=== PATIENT | female | born 1950 | race Caucasian/White ===

== ENCOUNTER 2024-03-30 21:30 | Emergency (ER) | payer OTHER ==
[2024-03-30] MEDS ORDERED: NA CHLORIDE 0.9% 1,000 ML ONE (22:12)
[2024-03-30 22:30] LABS: ALT/SGPT 19 U/L (13-56); AST/SGOT 17 U/L (15-37); Albumin 3.6 g/dL (3.4-5.0); Alkaline Phosphatase 68 U/L (45-117); Anion Gap 9.6 mEq/L (5.0-15.0); BUN Blood Urea Nitrogen 17 mg/dL (7-18); Bicarbonate 27 mEq/L (21-32); Bilirubin Total 0.2 mg/dL (0.2-1.0); Globulin 3.6 g/dL (2.3-3.5); Glomerular Filtration Rate 64 ml/min (=/>90); Glucose Level 129 mg/dL (74-106); Magnesium 2.1 mg/dL (1.6-2.4); NT PRO-BNP 40 pg/mL (<125); Potassium 3.6 mEq/L (3.5-5.1); Protein, Total 7.2 g/dL (6.4-8.2); Sodium Level 135 mEq/L (136-145); Troponin High Sensitivity 4.2 pg/mL (<58.9)
[2024-03-30 22:31] LABS: Bilirubin Direct < 0.2 mg/dL (0-0.2)
[2024-03-30 22:36] LABS: C-Reactive Protein 4.41 mg/L (<3.00)
[2024-03-30 22:38] LABS: Thyroid Stimulating Hormone 9.29 uIU/mL (0.358-3.740)
[2024-03-30 22:48] LABS: PT Prothrombin Time 10.9 SECONDS (9.4-12.5); PTT, Activated Partial Thromb 32.4 SECONDS (24.3-36.9); Protime INR 0.97
[2024-03-30 22:55] LABS: Absolute Eosinophils 0.2 K/uL (0-0.5); Absolute Lymphocytes (CBC) 2.2 K/uL (0.7-4.9); Absolute Monocytes 0.7 K/uL (0.1-1.3); Absolute Neutrophil 2.8 K/uL (1.8-8.0); Basophils % 0.5 % (0-1.3); Eosinophils % 3.5 % (0-4.4); Hematocrit 34.9 % (36.0-45.0); Hemoglobin 11.9 g/dL (12.0-15.0); Lymphocytes % 36.7 % (15.3-44.8); MCHC 34.1 g/dL (32.0-36.0); MCV 90.9 fL (80-100); MPV 7.7 fL (7.6-11.3); Monocytes % 12.2 % (3.3-12.3); Neutrophils % 47.1 % (41.7-73.7); Nucleated Red Blood Cells % 0.1 % (0-0); Platelets 303 thou/uL (152-406); RBC Red Blood Cell Count 3.83 M/uL (3.86-4.86); Red Cell Distribution Width 13.6 % (12.1-15.2)
--- NOTE | 2024-03-31 01:34 | ER ---
Nurse's Notes [facility] Name: Faina Gutierrez Age: 73 yrs Sex: Female : 1950 Arrival Date: 03/30/2024 Time: 21:30 Bed 4 Private MD: Diagnosis: Chest pain, unspecified;Atypical chest pain Presentation: 03/30 21:55 Chief complaint: Patient states: This afternoon started having really bad chest pain vc1 that wraps around my back to my shoulder and neck. Coronavirus screen: Vaccine status: Patient reports receiving the 2nd dose of the covid vaccine. plus one booster Client denies travel out of the [place] in the last 14 days. At this time, the client does not indicate any symptoms associated with coronavirus-19. Ebola Screen: Patient negative for fever greater than or equal to 101.5 degrees Fahrenheit, and additional compatible Ebola Virus Disease symptoms Patient denies exposure to infectious person. Patient denies travel to an Ebola-affected area in the 21 days before illness onset. No symptoms or risks identified at this time. Initial Sepsis Screen: Does the patient meet any 2 criteria? No. Patient's initial sepsis screen is negative. Does the patient have a suspected source of infection? No. Patient's initial sepsis screen is negative. Risk Assessment: Do you want to hurt yourself or someone else? Patient reports no desire to harm self or others. Onset of symptoms was March 30, 2024. 21:55 Method Of Arrival: Wheelchair vc1 21:55 Acuity: BRANDON 3 vc1 Triage Assessment: 22:03 General: Appears in no apparent distress. uncomfortable, slender, well groomed, well vc1 developed, well nourished, Behavior is calm, cooperative, appropriate for age. Pain: Complains of pain in right upper quadrant and left upper quadrant Pain radiates to left subscapular area, right subscapular area and right sternocleidomastoid Pain currently is 5 out of 10 on a pain scale. at worst was 8 out of 10 on a pain scale. Quality of pain is described as sharp, Pain began suddenly, Also complains of nausea. EENT: No deficits noted. No signs and/or symptoms were reported regarding the EENT system. Neuro: Level of Consciousness is awake, alert, obeys commands, Oriented to person, place, time, situation, Appropriate for age. Cardiovascular: Heart tones S1 S2 present Capillary refill < 3 seconds Patient's skin is warm and dry. Respiratory: Airway is patent Respiratory effort is even, unlabored, Respiratory pattern is regular, symmetrical. GI: Reports epigastric pain, nausea. : No deficits noted. No signs and/or symptoms were reported regarding the genitourinary system. Derm: Skin is intact, is healthy with good turgor, Skin is dry, Skin is normal, Skin temperature is warm. Musculoskeletal: Circulation, motion, and sensation intact. Range of motion: intact in all extremities. Historical: - Allergies: 22:00 "any meds that end with cet ex. percocet"; vc1 - PMHx: 22:00 None; vc1 - PSHx: 22:00 Hysterectomy(left uterus); vc1 - Immunization history:: Client reports receiving the 2nd dose of the Covid vaccine, Pneumococcal vaccine is up to date, Flu vaccine is up to date. - Infectious Disease History:: Denies. - Social history:: Smoking status: Patient denies any tobacco usage or history of. - Family history:: not pertinent. Screenin:02 [facility] ED Fall Risk Assessment (Adult) History of falling in the last 3 months, vc1 including since admission No falls in past 3 months (0 pts) Confusion or Disorientation No (0 pts) Intoxicated or Sedated No (0 pts) Impaired Gait No (0 pts) Mobility Assist Device Used No (0 pt) Altered Elimination No (0 pt) Score/Fall Risk Level 0 - 2 = Low Risk Oriented to surroundings, Maintained a safe environment, Educated pt \\T\\ family on fall prevention, incl call for assistance when getting out of bed. Abuse screen: Denies threats or abuse. Nutritional screening: No deficits noted. Tuberculosis screening: No symptoms or risk factors identified. Assessment: 22:10 General: Appears uncomfortable, Behavior is calm, cooperative, appropriate for age. dd2 Pain: Complains of pain in chest and back Pain radiates to back Pain currently is 6 out of 10 on a pain scale. at worst was 9 out of 10 on a pain scale. Pain: Quality of pain is described as burning, Pain began 4 hours ago. Neuro: Rivera Agitation-Sedation Scale (RASS): 0 - Alert and Calm Level of Consciousness is awake, alert, obeys commands, Oriented to person, place, time, situation, Appropriate for age. Cardiovascular: Reports chest pain, Heart tones S1 S2 present Patient's skin is warm and dry. Rhythm is sinus rhythm. Cardiovascular: Chest pain is described as Pain is 6 out of 10 on a pain scale. quality is burning, is located in epigastric area substernal area. Respiratory: Airway is patent Respiratory effort is even, unlabored, Respiratory pattern is regular, symmetrical, Breath sounds are clear bilaterally. GI: Abdomen is non-distended, Bowel sounds present X 4 quads. Abd is soft and non tender X 4 quads. Reports epigastric pain. : No deficits noted. No signs and/or symptoms were reported regarding the genitourinary system. EENT: No deficits noted. No signs and/or symptoms were reported regarding the EENT system. Derm: No deficits noted. No signs and/or symptoms reported regarding the dermatologic system. Musculoskeletal: No deficits noted. No signs and/or symptoms reported regarding the musculoskeletal system. Circulation, motion, and sensation intact. Range of motion: intact in all extremities. 03/31 00:23 Reassessment: Patient and/or family updated on plan of care and expected duration. Pain dd2 level reassessed. Patient is alert, oriented x 3, equal unlabored respirations, skin warm/dry/pink. Patient states feeling better. Patient states symptoms have improved. Vital Signs: 03/30 21:55 BP 179 / 79; Pulse 85; Resp 14; Temp 98.4; Pulse Ox 100% ; Weight 57.15 kg; Height 5 vc1 ft. 4 in. ; Pain 5/10; 22:05 BP 179 / 79; Pulse 69; Resp 16; Pulse Ox 100% on R/A; dd2 23:00 BP 143 / 93; Pulse 78; Resp 16; Pulse Ox 100% on R/A; dd2 03/31 01:09 BP 163 / 87; Pulse 73; Resp 16; Pulse Ox 100% on R/A; dd2 02:08 BP 170 / 84; Pulse 74; Resp 16; Pulse Ox 99% on R/A; dd2 03:33 BP 149 / 78; Pulse 76; Resp 16; Temp 98.3; Pulse Ox 99% on R/A; dd2 03/30 21:55 Body Mass Index 21.63 (57.15 kg, 162.56 cm) vc1 03/30 21:55 Pain Scale: Adult vc1 Jerod Coma Score: 03/30 21:50 Eye Response: spontaneous(4). Motor Response: obeys commands(6). Verbal Response: sp4 oriented(5). Total: 15. 22:05 Eye Response: spontaneous(4). Motor Response: obeys commands(6). Verbal Response: dd2 oriented(5). Total: 15. ED Course: 21:32 Patient arrived in ED. gm2 21:33 Lg Arias MD is Attending Physician. sp4 21:47 JULITO BAL, CASTILLO is Primary Nurse. dd2 22:00 Triage completed. vc1 22:02 Arm band placed on right wrist. vc1 22:04 Basic Metabolic Panel Sent. dd2 22:04 CBC with Diff Sent. dd2 22:04 LFT's Sent. dd2 22:04 Magnesium Sent. dd2 22:04 NT PRO-BNP Sent. dd2 22:04 PT-INR Sent. dd2 22:04 Troponin HS Sent. dd2 22:05 Patient has correct armband on for positive identification. Bed in low position. Call dd2 light in reach. Side rails up X2. Client placed on continuous cardiac and pulse oximetry monitoring. NIBP monitoring applied. environmental monitoring specialist on. Door closed. Noise minimized. Warm blanket given. Pillow given. Verbal reassurance given. 22:05 CRP Sent. dd2 22:05 T4 Free Sent. dd2 22:05 TSH Sent. dd2 22:05 No provider procedures requiring assistance completed. Initial lab(s) drawn, by dc, dd2 sent to lab. Inserted saline lock: 20 gauge in left antecubital area, using aseptic technique. Blood collected. Flushed with 10 mL NS. Patient maintains SpO2 saturation greater than 95% on room air. 22:18 EKG done, by ED staff, reviewed by Lg Arias MD. dd2 22:37 US Abdomen Limited In Process Unspecified. EDMS 22:54 CT Aorta for Dissection In Process Unspecified. EDMS /03 01:32 Prince Ware MD is Hospitalizing Provider. sp4 02:08 Troponin High Sensitivity Sent. dd2 03:21 Darien Pastrana MD is Referral Physician. sp4 03:33 Provided Education on: D/C EDUCATION. dd2 03:33 IV discontinued, intact, bleeding controlled, No redness/swelling at site. Pressure dd2 dressing applied. Administered Medications: 03/30 22:18 Drug: NS 0.9% IV 1000 ml IV at 125 ml/hr Per protocol; to be given as a bolus over 60 dd2 minutes Route: IV; Rate: 125 ml/hr; Site: left antecubital; 22:33 Follow up: Response: No adverse reaction dd2 23:18 Follow up: IV Status: Completed infusion; IV Intake: 1000ml dd2 03/31 02:08 Drug: Famotidine IVP 20 mg IVP once; dilute with 10 mL 0.9% NaCl; give over 2 minutes dd2 Route: IVP; Site: left antecubital; 02:23 Follow up: Response: No adverse reaction dd2 02:08 Drug: Aspirin PO Chewable Tablet 324 mg PO once; 81 mg tablets x 4 Route: PO; dd2 02:38 Follow up: Response: No adverse reaction dd2 Medication: 03/30 22:03 VIS not applicable for this client. vc1 Intake: 23:18 IV: 1000ml; Total: 1000ml. dd2 Outcome: 03/31 01:33 Decision to Hospitalize by Provider. sp4 03:22 Discharge ordered by . sp4 03:33 Discharged to home ambulatory, dd2 03:33 Condition: stable 03:33 Discharge instructions given to patient, Instructed on discharge instructions, follow up and referral plans. medication usage, Demonstrated understanding of instructions, follow-up care, medications, Prescriptions given X 1, 03:35 Patient left the ED. dd2 Signatures: Dispatcher [employer] EDMS Heather Busby RN RN vc1 Lg Arais MD MD sp4 Kerrie Bills gm2 JULITO BAL RN RN dd2
--- NOTE | 2024-03-31 01:34 | EDPHYS ---
Physician Documentation [facility] Name: Hyacinth Suresh Age: 73 yrs Sex: Female : 1950 Arrival Date: 03/30/2024 Time: 21:30 Bed 4 Private MD: ED Physician Lg Arias HPI: 03/30 21:33 This 73 yrs old Female presents to ER via Unassigned with complaints of Chest sp4 pain . 03/31 01:38 73-year-old female with history of periodic acid reflux presents with acute bilateral sp4 chest pain associated with radiation into the upper chest neck and lower jaw. This has started in the daytime and afternoon.. Historical: - Allergies: 03/30 22:00 "any meds that end with cet ex. percocet"; vc1 - PMHx: 22:00 None; vc1 - PSHx: 22:00 Hysterectomy(left uterus); vc1 - Immunization history:: Client reports receiving the 2nd dose of the Covid vaccine, Pneumococcal vaccine is up to date, Flu vaccine is up to date. - Infectious Disease History:: Denies. - Social history:: Smoking status: Patient denies any tobacco usage or history of. - Family history:: not pertinent. ROS: 03/31 01:38 Constitutional: Negative for fever, chills, and weight loss, sp4 Constitutional: Negative for fever, chills, and weight loss, positive for chest pain All other systems are negative, Exam: 03/30 21:50 Constitutional: This is a well developed, well nourished patient who is awake, alert, sp4 and in no acute distress. Head/Face: Normocephalic, atraumatic. Eyes: Pupils equal round and reactive to light, extra-ocular motions intact. Lids and lashes normal. Conjunctiva and sclera are not injected. Cornea within normal limits. Periorbital areas with no swelling, redness, or edema. ENT: Nares patent. No nasal discharge, no septal abnormalities noted. Tympanic membranes are normal and external auditory canals are clear. Oropharynx with no redness, swelling, or masses, exudates, or evidence of obstruction, uvula midline. Mucous membranes moist. Neck: Trachea midline, no thyromegaly or masses palpated, and no cervical lymphadenopathy. Supple, full range of motion without nuchal rigidity, or vertebral point tenderness. Chest/axilla: Normal chest wall appearance and motion. Nontender with no deformity. No lesions are appreciated. Cardiovascular: Regular rate and rhythm with a normal S1 and S2. No gallops, murmurs, or rubs. Normal PMI, no JVD. No pulse deficits. Respiratory: Lungs have equal breath sounds bilaterally, clear to auscultation and percussion. No rales, rhonchi or wheezes noted. No increased work of breathing, no retractions or nasal flaring. Abdomen/GI: Soft, with normal bowel sounds. No distension or tympany. No guarding or rebound. No evidence of tenderness throughout. Back: No spinal tenderness. No costovertebral tenderness. Skin: Warm, dry with normal turgor. Normal color with no rashes, no lesions, and no evidence of cellulitis. MS/ Extremity: Pulses equal, no cyanosis. Neurovascular intact. Full, normal range of motion. Neuro: Awake and alert, GCS 15, oriented to person, place, time, and situation. Cranial nerves II-XII grossly intact. Motor strength 5/5 in all extremities. Sensory grossly intact. Psych: Awake, alert, with orientation to person, place and time. Behavior, mood, and affect are within normal limits ECG was reviewed by the Attending Physician. 03/31 01:37 EKG at 2142 normal sinus rhythm rate 79. sp4 Vital Signs: 03/30 21:55 BP 179 / 79; Pulse 85; Resp 14; Temp 98.4; Pulse Ox 100% ; Weight 57.15 kg; Height 5 vc1 ft. 4 in. ; Pain 5/10; 22:05 BP 179 / 79; Pulse 69; Resp 16; Pulse Ox 100% on R/A; dd2 23:00 BP 143 / 93; Pulse 78; Resp 16; Pulse Ox 100% on R/A; dd2 03/31 01:09 BP 163 / 87; Pulse 73; Resp 16; Pulse Ox 100% on R/A; dd2 02:08 BP 170 / 84; Pulse 74; Resp 16; Pulse Ox 99% on R/A; dd2 03:33 BP 149 / 78; Pulse 76; Resp 16; Temp 98.3; Pulse Ox 99% on R/A; dd2 03/30 21:55 Body Mass Index 21.63 (57.15 kg, 162.56 cm) vc1 03/30 21:55 Pain Scale: Adult vc1 [place] Coma Score: 03/30 21:50 Eye Response: spontaneous(4). Motor Response: obeys commands(6). Verbal Response: sp4 oriented(5). Total: 15. 22:05 Eye Response: spontaneous(4). Motor Response: obeys commands(6). Verbal Response: dd2 oriented(5). Total: 15. MDM: 21:37 Medical Screening Exam initiated sp4 23:32 ED course: EXAM DESCRIPTION: Abdomen Exam Limited RadLex: US ABDOMEN LIMITED CLINICAL sp4 HISTORY: ABD PAIN. COMPARISON: CT abdomen/pelvis from today. TECHNIQUE: Ultrasound of the right upper abdomen with Doppler flow imaging was obtained. FINDINGS: Gallbladder: No cholelithiasis or gallbladder wall thickening. Negative sonographic Smith's sign. Bile ducts: No dilatation of the intrahepatic bile ducts. The common bile duct measures 0.3 cm in diameter at the gladis hepatis. IMPRESSION: No cholelithiasis or acute findings. Electronically signed by: Carolann Castellanos MD 03/30/2024 11:24 PM. 03/31 01:14 ED course: EXAM DESCRIPTION: CT CHESTABDOMEN PELVIS ANGIOGRAPHYWITH IV CONTRAST sp4 03/31/2024 12:39 AM SENIOR SALES ASSISTANT CLINICAL HISTORY: 73 years, Female, Chest pain. COMPARISON: US Abdomen 03/30/2024. PROCEDURE: Multiple transaxial tomograms of the thoracic and abdominal aorta were performed utilizing 2 mm slice thickness at 2 mm interval reconstruction, from the lung apices to the ischial tuberosities, before and after the administration of large bolus of IV contrast for complete opacification of the thoracic, abdominal aorta and iliac arteries. 2-D and 3-D multiplanar reformats, volume rendering technique and maximum intensity projection images were generated and reviewed. An individualized dose optimization technique, Automated Exposure Control, was utilized for the performed procedure. Findings: Thoracic aorta/great vessels: The thoracic aorta demonstrate to be within normal limits. No evidence for significant aneurysm and/or dilatation. There is normal branching pattern of the great vessels with no evidence for significant proximal stenosis and/or occlusion Aorta/iliac arteries: There is minimal peripheral plaque in the abdominal aorta without aneurysmal dilatation or evidence of dissection. Bilateral common iliac arteries are patent minimal peripheral plaque. No evidence for significant stenosis. No dissection or aneurysm appreciated.. The origin-proximal aspect of the celiac trunk, superior mesenteric artery demonstrate minimal peripheral atheromatous plaque with no definitive evidence for significant stenosis. There are single bilateral renal arteries with the presence of minimal peripheral atheromatous plaque at the origin/proximal aspect with no evidence for significant stenosis. Chest: Lower neck: Visualized thyroid gland and soft tissues are normal. No adenopathy. Lungs: The lung parenchyma demonstrate to be clear. No evidence of airspace or interstitial process. No significant pulmonary nodules and/or masses identified. No focal areas of consolidation. Airways: The trachea mainstem bronchus demonstrate to be unremarkable. Pleural: There are no pleural effusion. No evidence for pneumothorax. Hemidiaphragms are normally positioned. Mediastinum and lymph nodes: No significant mediastinal and/or hilar lymphadenopathy. The axillary regions demonstrate to be clear. There is minimal mucosal thickening of the distal esophagus on CT series #401 image 45/209-78/209 perhaps corresponding to esophagitis and/or gastroesophageal reflux disease. Heart: Normal size. No pericardial thickening or effusion. Coronary: No significant coronary artery calcifications. Pulmonary arteries: The central pulmonary arteries demonstrate to be within normal limits. No evidence for significant central filling defect to suggest pulmonary embolus. Osseous structures and chest wall: The thoracic spine demonstrate to be within normal limits. No evidence for compression deformities and/or significant skeletal lesions. Abdomen and pelvis: Liver: The liver demonstrated presence of decreased attenuation corresponding to mild fatty infiltration. Gallbladder: The gallbladder is partially contracted most likely related to lack of fasting. No significant filling defects and/or abnormality is identified. Adrenal glands: The adrenal glands demonstrate to be normal. Pancreas: The pancreas demonstrate to be normal. Spleen: The spleen demonstrate to be within normal limits. Kidneys: The kidneys demonstrate normal uptake of contrast media. There is no evidence for nephrolithiasis and/or hydronephrosis. [address] [address] Final Radiology Report Name: HYACINTH SURESH Age: 73y Date: 03/30/2024 9:46 PM : 1950 Study: Angio Aorta For Dissection Requesting Physician: Lg Arias [id number] HYACINTH SURESH Page 1 of 2 [id number] Angio Aorta For Dissection GI: Grossly the unopacified stomach, small bowel and large bowel demonstrate to be within normal limits. No evidence for bowel dilatation and/or free air. The appendix is normal. The left-sided colon/sigmoid colon demonstrates presence of diffuse diverticulosis. : The urinary bladder demonstrate to be unremarkable. Genitalia: The uterus demonstrate to be within normal limits. There are normal adnexal structures. Retroperitoneum:There is no retroperitoneal lymphadenopathy. There is no evidence for ascites and/or abnormal fluid collections. Bones: The bones demonstrate to be demineralized. The lumbar spine demonstrate minimal degenerative changes at L2/L3. Soft tissues: There is a small umbilical hernia containing omentum. IMPRESSION: No evidence for significant aneurysm and/or dissection of the thoracic or abdominal aorta. No evidence for significant central pulmonary embolus. Minimal mucosal thickening of the distal esophagus perhaps corresponding to esophagitis and/or gastroesophageal reflux disease. Colonic diverticulosis without evidence of acute diverticulitis. Mild fatty infiltration of the liver. Electronically signed by: Arvin Oquendo MD 03/31/2024 01:10 AM. ED course: EXAM DESCRIPTION: Abdomen Exam Limited RadLex: US ABDOMEN LIMITED CLINICAL HISTORY: ABD PAIN. COMPARISON: CT abdomen/pelvis from today. TECHNIQUE: Ultrasound of the right upper abdomen with Doppler flow imaging was obtained. FINDINGS: Gallbladder: No cholelithiasis or gallbladder wall thickening. Negative sonographic Smith's sign. Bile ducts: No dilatation of the intrahepatic bile ducts. The common bile duct measures 0.3 cm in diameter at the gladis hepatis. IMPRESSION: No cholelithiasis or acute findings. . 01:39 Differential diagnosis: acute pericarditis, anxiety, coronary artery disease chest wall sp4 pain, congestive heart failure cholecystitis, Cholelithiasis costochondritis, esophagitis, gastritis. HEART Score: History: Moderately Suspicious (1), ECG: Normal (0), Age: > or = 65 years (2), Risk Factors: No Risk Factors Known (0), Troponin: < or = 1 x Normal Limit (0), Total Score = 3. The patient was given aspirin in the Emergency Department. Data reviewed: vital signs, nurses notes, old medical records, lab test result(s), EKG, radiologic studies, CT scan, ultrasound. Consideration of Admission/Observation Patient was admitted/placed on observation. Escalation of care including admission/observation considered. Management of patient was discussed with the following: Hospitalist: Jeanie Carlson Bulk Pigment Reducer: Marques Carlson ED course: Patient at this time stable for admission with cardiology consult.. 03:27 ED course: Patient decided against admission and decided to go home. Patient was sp4 provided informed discharge. Patient has no active chest pains.. 03/30 21:33 Order name: Basic Metabolic Panel; Complete Time: 23:29 sp4 03/30 21:33 Order name: CBC with Diff; Complete Time: 23:29 sp4 03/30 21:33 Order name: LFT's; Complete Time: 23:29 sp4 03/30 21:33 Order name: Magnesium; Complete Time: 23:29 sp4 03/30 21:33 Order name: NT PRO-BNP; Complete Time: 23:29 sp4 03/30 21:33 Order name: PT-INR; Complete Time: 23:29 sp4 03/30 21:33 Order name: Troponin HS; Complete Time: 23:29 sp4 03/30 21:48 Order name: TSH; Complete Time: 23:29 sp4 03/30 21:48 Order name: T4 Free; Complete Time: 23:29 sp4 03/30 21:48 Order name: CRP; Complete Time: 23:29 sp4 03/30 22:13 Order name: PTT, Activated Partial Thromb; Complete Time: 23:29 EDRI 03/31 01:30 Order name: Troponin High Sensitivity; Complete Time: 03:20 sp4 03/30 21:46 Order name: CT Aorta for Dissection 4 03/30 21:59 Order name: US Abdomen Limited sp4 03/30 21:33 Order name: EKG; Complete Time: 21:34 sp4 03/30 21:33 Order name: Cardiac monitoring; Complete Time: 22:04 sp4 03/30 21:33 Order name: EKG - Nurse/Tech; Complete Time: 22:18 sp4 03/30 21:33 Order name: IV Saline Lock; Complete Time: 22:04 sp4 03/30 21:33 Order name: Labs collected and sent; Complete Time: 22:05 sp4 03/30 21:33 Order name: O2 Per Protocol; Complete Time: 22:05 sp4 03/30 21:33 Order name: O2 Sat Monitoring; Complete Time: 22:05 sp4 EC/02 21:42 Rate is 79 beats/min. Rhythm is regular, Normal Sinus Rhythm. QRS [place] is Normal. HI sp4 interval is normal. QRS interval is normal. QT interval is normal. No Q waves. T waves are Normal. No ST changes noted. Clinical impression: No evidence of ischemia. Interpreted by me. Reviewed by me. Administered Medications: 22:18 Drug: NS 0.9% IV 1000 ml IV at 125 ml/hr Per protocol; to be given as a bolus over 60 dd2 minutes Route: IV; Rate: 125 ml/hr; Site: left antecubital; 22:33 Follow up: Response: No adverse reaction dd2 23:18 Follow up: IV Status: Completed infusion; IV Intake: 1000ml dd2 03/31 02:08 Drug: Famotidine IVP 20 mg IVP once; dilute with 10 mL 0.9% NaCl; give over 2 minutes dd2 Route: IVP; Site: left antecubital; 02:23 Follow up: Response: No adverse reaction dd2 02:08 Drug: Aspirin PO Chewable Tablet 324 mg PO once; 81 mg tablets x 4 Route: PO; dd2 02:38 Follow up: Response: No adverse reaction dd2 Disposition Summary: 03/31/24 03:22 Discharge Ordered Notes: We recommend you see [facility] for outpatient work up Location: Home(03/31/24 03:22) sp4 Problem: new(03/31/24 03:22) sp4 Symptoms: have improved(03/31/24 03:22) sp4 Condition: Stable(03/31/24 03:22) sp4 Diagnosis - Chest pain, unspecified sp4 - Atypical chest pain sp4 Followup: sp4 - With: Darien Pastrana MD - When: 7 - 10 days - Reason: Recheck today's complaints Discharge Instructions: - Discharge Summary Sheet sp4 - Nonspecific Chest Pain, Adult, [id number] sp4 Forms: - Patient Portal Instructions sp4 Prescriptions: - omeprazole 40 mg Oral capsule,delayed release (e.c.) - dissolve 1 capsule ORAL route daily for 30 days; 30 capsule; Refills: 0, sp4 Product Selection Permitted Signatures: Dispatcher [employer] EDRI Heather Busby RN RN vc1 Lg Arias MD MD sp4 JULITO BAL RN RN dd2 Corrections: (The following items were deleted from the chart) 03/30 21:49 21:49 C-REACTIVE PROTEIN+C.LAB.BRZ ordered. EDMS EDMS 21:51 21:34 Chest Single View+RAD.RAD.BRZ ordered. EDMS EDMS 22:13 22:00 PTT, ACTIVATED+COAG.LAB.BRZ ordered. EDMS EDMS 03/31 03:21 01:33 Observation sp4 sp4 03:21 01:33 [place] sp4 sp4 03:21 01:33 Telemetry/MedSurg (observation) sp4 sp4 03:21 01:33 Stable sp4 sp4 03:21 01:33 new sp4 sp4 03:21 01:33 have improved sp4 sp4 03:21 01:33 Standard sp4 sp4 03:21 01:33 sp4 sp4 03:21 01:33 Angina pectoris, unspecified sp4 sp4
[2024-03-31] MEDS ORDERED: ASPIRIN 81 MG CHEWABLE TABLET ONE (01:55)
[2024-03-31] MEDS ORDERED: FAMOTIDINE 20 MG/2 ML VIAL IV ONE (01:55)
--- NOTE | 2024-03-31 06:41 | RAD REPORT ---
EXAM DESCRIPTION: Abdomen Exam Limited RadLex: US ABDOMEN LIMITED CLINICAL HISTORY: ABD PAIN. COMPARISON: CT abdomen/pelvis from today. TECHNIQUE: Ultrasound of the right upper abdomen with Doppler flow imaging was obtained. FINDINGS: Gallbladder: No cholelithiasis or gallbladder wall thickening. Negative sonographic Smith's sign. Bile ducts: No dilatation of the intrahepatic bile ducts. The common bile duct measures 0.3 cm in sumaya meter at the gladis hepatis. IMPRESSION: No cholelithiasis or acute findings. Electronically signed by: Carolann Castellanos MD 03/30/2024 11:24 PM [facility] Due to temporary technical issues with the PACS/Plaid reporting system, reports are being sharee d by the in-house radiologist without review as a courtesy to ensure prompt reporting the interpreting radiologist is fully responsible for the content of the report. Transcribed Date/Time: 03/31/2024 6:44 AM
[2024-03-31 11:28] VITALS: BP 149/78; TEMP 98.3; O2SAT 99
--- NOTE | 2024-03-31 12:40 | EKG ---
Test Date: 2024-03-30 Test Time: 21:42:37 Manager Field Investigations: LISBET MEASUREMENT RESULTS: Intervals: Rate: 79 VA: 160 QRSD: 78 QT: 366 QTc: 419 [place]: P: 65 VA: 160 QRS: 5 T: 61 INTERPRETIVE STATEMENTS: Normal sinus rhythm Low voltage QRS Borderline ECG No previous ECG available for comparison Electronically Signed On 03-31-24 12:39:12 EMERGENCY SERVICES DISPATCHER by Santiago Mohan
--- NOTE | 2024-04-05 08:51 | RAD REPORT ---
EXAM DESCRIPTION: CT CHESTABDOMEN PELVIS ANGIOGRAPHYWITH IV CONTRAST 03/31/2024 12:39 AM SCHEDULE CHECKER CLINICAL HISTORY: 73 years, Female, Chest pain. COMPARISON: US Abdomen 03/30/2024. PROCEDURE: Multiple transaxial tomograms of the thoracic and abdominal aorta were performed utilizing 2 mm slice thickness at 2 mm interval reconstruction, from the lung apices to the ischial tuberosities, before and after the administration of large bolus of IV contrast for complete opacification of the thoracic, abdominal aorta and iliac arteries. 2-D and 3-D multiplanar r eformats, volume rendering technique and maximum intensity projection images were generated and reviewed. An individualized dose optimization technique, Automated Exposure Control, was utilized for the performed procedure. Findings: Thoracic aorta/great vessels: The thoracic aorta demonstrate to be within normal limits. No evidence for significant aneurysm and/o r dilatation. There is normal branching pattern of the great vessels with no evidence for significant proximal stenosis and/or occl usion Aorta/iliac arteries: There is minimal peripheral plaque in the abdominal aorta without aneurysmal dilatation or evidence o f dissection. Bilateral common iliac arteries are patent minimal peripheral plaque. No evidence for significant stenosis. No dissect ion or aneurysm appreciated.. The origin-proximal aspect of the celiac trunk, superior mesenteric artery demonstrate minimal periph eral atheromatous plaque with no definitive evidence for significant stenosis. There are single bilateral renal arteries with the presence of minimal peripheral atheromatous plaque at the origin/proximal aspect with no evidence for significant stenosis. Chest: Lower neck: Visualized thyroid gland and soft tissues are normal. No adenopathy. Lungs: The lung parenchyma demonstrate to be clear. No evidence of airspace or interstitial process. No significant pulmonary nodules and/or masses identified. No focal areas of consolidation. Airways: The trachea mainstem bronchus demonstrate to be unremarkable. Pleural: There are no pleural effusion. No evidence for pneumothorax. Hemidiaphragms are normally pos itioned. Mediastinum and lymph nodes: No significant mediastinal and/or hilar lymphadenopathy. The axillary re gions demonstrate to be clear. There is minimal mucosal thickening of the distal esophagus on CT series #401 image 45/209-78/ perhaps corresponding to esophagitis and/or gastroesophageal reflux disease. Heart: Normal size. No pericardial thickening or effusion. Coronary: No significant coronary artery calcifications. Pulmonary arteries: The central pulmonary arteries demonstrate to be within normal limits. No evidenc e for significant central filling defect to suggest pulmonary embolus. Osseous structures and chest wall: The thoracic spine demonstrate to be within normal limits. No evid ence for compression deformities and/or significant skeletal lesions. Abdomen and pelvis: Liver: The liver demonstrated presence of decreased attenuation corresponding to mild fatty infiltrat ion. Gallbladder: The gallbladder is partially contracted most likely related to lack of fasting. No signi ficant filling defects and/or abnormality is identified. Adrenal glands: The adrenal glands demonstrate to be normal. Pancreas: The pancreas demonstrate to be normal. Spleen: The spleen demonstrate to be within normal limits. Kidneys: The kidneys demonstrate normal uptake of contrast media. There is no evidence for nephrolith iasis and/or hydronephrosis. [address], [facility] [address] Final Radiology Report Name: HYACINTH SURESH Age: 73y Date: 03/30/2024 9:46 PM : 1950 Study: Angio Aorta For Dissection Requesting Physician: Lg Arias [id number] HYACINTH SURESH Page 1 of 2 [id number] Angio Aorta For Dissection GI: Grossly the unopacified stomach, small bowel and large bowel demonstrate to be within normal limi ts. No evidence for bowel dilatation and/or free air. The appendix is normal. The left-sided colon/sigmoid colon demonstrates p resence of diffuse diverticulosis. : The urinary bladder demonstrate to be unremarkable. Genitalia: The uterus demonstrate to be within normal limits. There are normal adnexal structures. Retroperitoneum:There is no retroperitoneal lymphadenopathy. There is no evidence for ascites and/or abnormal fluid collections. Bones: The bones demonstrate to be demineralized. The lumbar spine demonstrate minimal degenerative c hanges at L2/L3. Soft tissues: There is a small umbilical hernia containing omentum. IMPRESSION: No evidence for significant aneurysm and/or dissection of the thoracic or abdominal aorta. No evidence for significant central pulmonary embolus. Minimal mucosal thickening of the distal esophagus perhaps corresponding to esophagitis and/or gastro esophageal reflux disease. Colonic diverticulosis without evidence of acute diverticulitis. Mild fatty infiltration of the liver. Electronically signed by: Arvin Oquendo MD 03/31/2024 01:10 AM [facility] Due to temporary technical issues with the PACS/SocialWire reporting system, reports are being sharee d by the in-house radiologist without review as a courtesy to ensure prompt reporting the interpreting radiologist is fully responsible for the content of the report. Transcribed Date/Time: 04/05/2024 8:51 AM
== END 2024-03-31 03:35 | disposition home or self-care (01) ==
LOC: ER 21:30
DX: R07.89 Other chest pain (principal)
CPT/HCPCS: 96361; 93005; 85025; 80048; 36415 ×2; 83735; 85610; 80076; 85730; 84443; 84484 ×2; 84439; 83880; 86140; 71275; 74175; 76705; 96374; 99285; Q9967; J7030